=== PATIENT | male | born 1955 | race Caucasian/White ===

== ENCOUNTER 2017-09-05 14:16 | Outpatient (CLI) ==
[2016-03-03 05:03] VITALS: BMI 47.7
== END 2017-09-05 14:17 | disposition home or self-care (01) ==
LOC: FCC-LAB 14:16
PROVIDERS: ATTEND Nurse Practitioner Family
DX: J02.9 Acute pharyngitis, unspecified (principal); I10 Essential (primary) hypertension; E75.6 Lipid storage disorder, unspecified; Z12.5 Encounter for screening for malignant neoplasm of prostate
CPT/HCPCS: 36415; 80053; 80061; 85025; 87651